=== PATIENT | female | born 1960 | race Caucasian/White ===

== ENCOUNTER → 2020-07-30 09:45 | Outpatient (CLI) | payer BC, SELFPAY ==
--- NOTE | ~2020-07-30 | US_ITS ---
EXAMINATION: US right upper quadrant DATE: 07/30/2020 10:26 INDICATION: Right upper quadrant abdominal pain. TECHNIQUE: Multiple grayscale and Doppler ultrasound images of the abdomen were obtained. COMPARISON: None FINDINGS: The visualized portions of the head and body of the pancreas are normal. The liver is alfreda l without focal lesion. No liver surface nodularity. There is normal flow in main portal vein. The ga llbladder is normal in size. There is a 4 mm polyp in the gallbladder, likely a benign cholesterol po lyp needing no follow-up. No gallstones or gallbladder wall thickening. There was no sonographic Murp hy sign. The common duct is normal and measures 3 mm. IMPRESSION: 1. No etiology for the patient's symptoms. Reviewed, dictated and finalized at location B. 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
== END ==
PROVIDERS: PCP Internal Medicine; Visit Provider Physician Assistant Medical
DX: R10.11 Right upper quadrant pain (principal)
CPT/HCPCS: 76705

== ENCOUNTER → 2021-08-19 09:31 | Outpatient (CLI) | payer BC, SELFPAY ==
--- NOTE | ~2021-08-19 | MR_ITS ---
EXAMINATION: MR brain/brain stem wo/w con DATE: 08/19/2021 10:59 INDICATION: Headache. TECHNIQUE: Magnetic resonance imaging (MRI) of the brain and brainstem was performed without and with 20 mL MultiHance intravenous contrast. Sequences included sagittal and axial T1-weighted FSE, axial diffusion-weighted FS EPI, axial T2*-weighted GRE, axial T2-weighted FLAIR Propeller, and axial T2-we ighted Propeller. Postcontrast sequences included axial and coronal T1-weighted FSE. Apparent diffusi on coefficient (ADC) maps were created. COMPARISON: None. FINDINGS: There are scattered areas of nonspecific increased T2-weighted signal intensity in the cere bral white matter, which is within normal limits for the patient's age. There is no intracranial hemo rrhage, acute infarction, or abnormal intracranial mass lesion. The ventricles are normal in size. Th e orbits are normal. The paranasal sinuses are clear. The mastoid air cells are normal. IMPRESSION: 1. Normal aging brain. Reviewed, dictated and finalized at location A. 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 Normal aging brain.
[2021-08-19 10:35] LABS: Estimated Glomerular Filt Rate 51
== END ==
PROVIDERS: PCP Internal Medicine; Visit Provider Physician Assistant Medical
DX: R51.9 Headache, unspecified (principal); R41.82 Altered mental status, unspecified
CPT/HCPCS: 70553; A9577

== ENCOUNTER → 2021-12-30 10:43 | Outpatient (CLI) | payer BC, SELFPAY ==
--- NOTE | ~2021-12-30 | XR_ITS ---
XR foot RT min 3V DATE: 12/30/2021 11:08 INDICATION: Stress fracture second metatarsal bone TECHNIQUE: 4 views COMPARISON: None FINDINGS: Prominent plantar calcaneal enthesopathy without associated erosive change or periostitis. There is mild osteoarthritis at first metatarsophalangeal joint. No fracture or dislocation, periosteal reaction or bone destruction is detected. IMPRESSION: Plantar calcaneal enthesopathy Mild osteoarthritis at first metatarsophalangeal joint No fracture is detected Reviewed, dictated and finalized at location B.
== END ==
PROVIDERS: PCP Internal Medicine; Visit Provider Podiatrist Foot & Ankle Surgery
DX: M77.31 Calcaneal spur, right foot (principal); M19.071 Primary osteoarthritis, right ankle and foot
CPT/HCPCS: 73630

== ENCOUNTER 2022-12-23 15:50 | Emergency (ER) | payer BC, SELFPAY ==
--- NOTE | ~2022-12-23 | CT_ITS ---
EXAMINATION: CT lumbar spine wo con DATE: 12/23/2022 17:24 INDICATION: Left-sided low back pain. Sciatica. TECHNIQUE: Computed tomography (CT) of the lumbar spine was performed without intravenous contrast. A utomated exposure control and iterative reconstruction technique were employed. The dose-length produ ct was 1372.09 mGy-cm. COMPARISON: None FINDINGS: Bone alignment is normal. There is mild chronic anterior wedging of T11 and T12 vertebral b odies. Intervertebral disc heights are normal. The following disc levels are specifically discussed: L1-L2: The disc does not extend beyond the endplate margin. There is moderate bilateral facet joint o steoarthritis. There is no neural foraminal stenosis. There is no central canal stenosis. L2-L3: There is a left foraminal protrusion. There is moderate bilateral facet joint osteoarthritis. There is mild left neural foraminal stenosis. There is no central canal stenosis. L3-L4: The disc is mildly bulging. There is moderate bilateral facet joint osteoarthritis. There is m ild bilateral neural foraminal stenosis. There is no central canal stenosis. L4-L5: The disc is bulging. There is severe bilateral facet joint osteoarthritis. There is mild bilat eral neural foraminal stenosis. There is mild central canal stenosis. There is moderate stenosis of r ight lateral recess. L5-S1: The disc is bulging. There is severe right and moderate left facet joint osteoarthritis. There is no neural foraminal stenosis. There is no central canal stenosis. IMPRESSION: 1. Mild lumbar spondylosis. Reviewed, dictated and finalized at location E. IMPRESSION: 1. Mild lumbar spondylosis.
[2022-12-23 16:05] VITALS: BP 108/79; PULSE 84; RESP 20; TEMP 36.3; O2SAT 98
--- NOTE | 2022-12-23 16:58 | ED.BACK ---
HPI - Back Pain/Injury General Chief Complaint: Back Pain/Injury Stated Complaint: sciatic pain Time Seen by Provider: 12/23/22 16:56 Source: patient Mode of arrival: ambulatory Limitations: no limitations History of Present Illness HPI Narrative: This is a 62-year-old female who presents to the ED with chief complaint of acute on chronic low back pain. Reports radiating pain into the left buttocks and left posterior lower extremity. States she has had low back pain for several months, however now it is starting to radiate into the lower extremity. Denies injuries. Describes a burning pain down the back of the leg. Denies numbness, weakness, urinary retention, bowel incontinence, fevers, chills. Related Data Allergies Allergy/AdvReac Type Severity Reaction Status Date / Time codeine Allergy Severe ANAPHYLACTI Verified 07/25/22 10:51 C Penicillins Allergy Intermediate HIVES Verified 07/25/22 10:51 Sulfa (Sulfonamide Allergy Intermediate HIVES Verified 07/25/22 10:51 Antibiotics) Review of Systems Review of Systems: CONSTITUTIONAL: Denies fever, chills, or sweats. SKIN: Denies rash or itching. MUSCULOSKELETAL: See HPI NEUROLOGIC: Denies headache, numbness, dizziness, or weakness. PSYCHIATRIC: Denies anxiety or depression. PMFSH Past Medical History Medical History Anxiety Arthritis Obesity Surgical History Surgical History H/O: hysterectomy Family History Family History Father Bone cancer Lung cancer Skin cancer Mother Heart disease CKD (chronic kidney disease) Diabetes mellitus Sibling No problems noted. Grandparent Heart disease Social History Social History (Updated 12/10/22 @ 14:45 by Tootie Montaño MA) Smoking packs per day: 0.5 Smoking cigarettes per day: 10.0 Smoking status: Unknown if ever smoked Tobacco type: cigarettes Alcohol intake: current Alcohol use details: socially Substance use: never Substance use type: does not use Lack of Transportation: No Lack of Food: Never True Current Housing: I Have Housing Concerned About Future Housing: No Difficulty Paying Gas/Electric Bills: No Difficulty Paying for Meds: No Currently Unemployed: No Education: High School Diploma/GED Difficulty w/ Childcare or Family Care: No Living arrangements: with family Occupation/Education: occupation Gender identity (if verbalized by the patient): Female Exam Narrative: GENERAL: Well-appearing, well-nourished, and in no acute distress. EXTREMITIES/SPINE: No midline tenderness throughout the CT LS spine. No bony deformities or step-offs. Lumbar left-sided paraspinal tenderness. Left SI tenderness. No right-sided tenderness. MSK exam is otherwise benign. Ambulatory. Normal range of motion. No edema. SKIN: Warm, dry, no rash. No overlying skin changes. NEURO: Alert and oriented x3. No focal deficits. 5 out of 5 strength and sensation in the lower extremities. PSYCH: Normal mood and affect. Course Vital Signs Vital signs: Vital Signs Temperature 97.4 F L 12/23/22 16:05 Pulse Rate 84 12/23/22 16:05 Respiratory Rate 20 12/23/22 16:05 Blood Pressure 108/79 12/23/22 16:05 Pulse Oximetry 98 12/23/22 16:05 Oxygen Delivery Room Air 12/23/22 16:05 Temperature 97.4 F L 12/23/22 16:05 Pulse Rate 84 12/23/22 16:05 Respiratory Rate 20 12/23/22 16:05 Blood Pressure 108/79 12/23/22 16:05 Pulse Oximetry 98 12/23/22 16:05 Oxygen Delivery Room Air 12/23/22 16:05 MDM - Back Pain/Injury MDM Narrative Medical decision making narrative: This is a 62-year-old female the ED with chief complaint of sciatica-like pains for 1 week. Longstanding history of back pain. Vitals are stable. Afebrile. No red flag back signs other than age. Exa
[2022-12-23] MEDS: KETOROLAC 30 MG/ML VIAL (*BKC) IM (17:28)
== END 2022-12-23 18:50 | disposition home or self-care (01) ==
LOC: ANHED 18:11
PROVIDERS: Emergency Provider Physician Assistant; PCP Physician Assistant Medical
DX: M54.42 Lumbago with sciatica, left side (principal); M19.90 Unspecified osteoarthritis, unspecified site; F41.9 Anxiety disorder, unspecified; E66.9 Obesity, unspecified; Z68.38 Body mass index [BMI] 38.0-38.9, adult; F17.210 Nicotine dependence, cigarettes, uncomplicated; M47.816 Spondylosis without myelopathy or radiculopathy, lumbar region
CPT/HCPCS: 72131; 96372; 99284; J1885

== ENCOUNTER 2023-02-03 10:00 | Outpatient (RCR) | payer BC, SELFPAY ==
--- NOTE | 2023-01-07 11:42 | PTOPEVAL1 ---
Assessment and note entered by Yonis Davila, PT Evaluation Information Assessment Status Evaluation Diagnosis Left side sciatica, muscle spasms DIANNE calfs Subjective Information Patient reports having DIANNE calf spasms so bad they are causing bruising. She reports having muscle enzymes values of 37 thousand when it is supposed to be 36. Patient also reports problems with her back causing radiating pain down the L leg from back into hip and then down the calf to the toes. 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 Pain is worse first thing in the morning and after prolonged position. Assessment PT Clinical Summary Maty is a 62 year old female coming into the clinic with a diagnosis of DIANNE calf muscle spasms and Sciatica on the L side. Patient has weakness in her core and hips, slight tightness in DIANNE calfs. No cramping noted during session. Physical therapy will work on back and calf stretching along with core and hip strengthening. Modalities and manual therapy as needed for pain control. Plan of Care Interventions Electrical Stimulation,Gait Training,Hot Pack/Cold Pack,Manual Therapy,Neuro Re-education,Patient/ Caregiver Education,Therapeutic Activities, Therapeutic Exercise,Ultrasound Other Interventions taping, cupping, IASTM PT Services Indicated Yes Treatment Frequency and 1-2x/wk for 4 weeks Duration These treatments will address the objective and functional deficits as defined above. The patient will be advanced safely and appropriately in order for the patient to progress towards his/her prior level of function. Additional exercises will be introduced and as well as a comprehensive home exercise program upon discharge, if needed, ?to ensure carryover of functional gains achieved in the clinic. This treatment plan has been reviewed and agreement upon by the patient.
--- NOTE | 2023-01-20 09:57 | PCPTNOTE ---
Patient called & cancelled scheduled appointment this date due to grand daughter being sick and Pt has to stay with her.
--- NOTE | 2023-02-03 13:17 | PTOPDC ---
Assessment and note entered by Yonis Davila, PT Evaluation Information Assessment Status Discharge Diagnosis Muscle spasm, sciatica L side Subjective Information Patient reports centralization of her radiating symptoms, still having pain in her low back, and R calf feels like there is a little alien in it running around. Patient has a nerve conduction test scheduled for March for the calf. Patient is also hoping to get an MRI of her low back, which she states the doctor said she could have after trying physical therapy. Pain is currently fluctuating being a 2/10 today, but was am 8/10 yesterday. Reported Pain Level Pain Score 2: Self Report Additional Pain Score Comments Patient reports she cannot find a rhyme or reason for the pain fluctuations. Assessment PT Clinical Summary Maty is a 62 year old female coming into the clinic with a diagnosis of spasms and L sides sciatica. Patient was evaluated on 01/05/23 and attended 5 visits. The patient has met her strength, flexibility, and centralization goals, but not pain. At this time patient feels comfortable with discharge from physical therapy with [facility] and will try to get an MRI of the back done along with the nerve conduction test on her R calf. Plan of Care PT Services Indicated No
== END 2023-02-03 14:32 | disposition home or self-care (01) ==
LOC: ANHPT 10:00
PROVIDERS: PCP Physician Assistant Medical; Visit Provider Student in an Organized Health Care Education/Training Program
DX: M62.838 Other muscle spasm (principal)
CPT/HCPCS: 97110; 97112; 97140; 97162; 97530

== ENCOUNTER → 2023-05-18 09:38 | Outpatient (CLI) | payer BC, SELFPAY ==
--- NOTE | ~2023-05-18 | MR_ITS ---
EXAMINATION: MR lower leg RT wo/w con DATE: 05/18/2023 10:33 INDICATION: Right lower extremity muscle spasms concerning for myopathic process TECHNIQUE: Magnetic resonance imaging (MRI) of the right lower leg was performed without and with 19 mL Multihance intravenous contrast. Sequences included axial, sagittal and coronal T1-weighted FSE an d fluid sensitive FSE STIR, axial T1-weighted FS FSE and post contrast axial, sagittal and coronal T1 -weighted FS FSE were also obtained. The contralateral left calf is included on the coronal images. COMPARISON: None. FINDINGS: There are regions of increased T2 signal involving portions of the musculature in the right calf most notable throughout the gastrocnemius muscle, both medial and lateral heads and in the muscles in the anterior compartment. Smaller regions of increased T2 signal in the muscles at the lateral compartme nt and in the posteromedial aspect of the soleus muscle. There appears to be corresponding minimal fa tty atrophy within the gastrocnemius muscle and muscles of the anterior compartment. Similar signal c hanges in distribution are seen in the contralateral left calf on the coronal images. Bone alignment is normal. Normal bone marrow signal throughout. There appears be at least mild osteoarthritis at the medial and lateral compartments of both knees. Small right knee joint effusion. No abnormally enhanc ing lesions identified. IMPRESSION: 1. Roughly symmetric pattern of geographic regions of increased fluid signal and minimal fatty atroph y of the musculature of both thighs most prominent at the gastrocnemius muscles and in the muscles in the anterior compartments consistent with nonspecific myopathy. The relatively symmetric bilateral d istribution would argue against trauma or infection and would favor other etiologies including denerv ation change, inherited myopathies and inflammatory myopathies which has a wide differential includin g multiple connective tissue diseases. Could consider muscle biopsy of the gastrocnemius muscle for p athologic correlation. Reviewed, dictated and finalized at location A. IMPRESSION: 1. Roughly symmetric pattern of geographic regions of increased fluid signal an d minimal fatty atrophy of the musculature of both thighs most prominent at the gastrocnemius muscles and in the muscles in the anterior compartments consiste nt with nonspecific myopathy. The relatively symmetric bilateral distribution w ould argue against trauma or infection and would favor other etiologies includi ng denervation change, inherited myopathies and inflammatory myopathies which h as a wide differential including multiple connective tissue diseases. Could con electrical assembler muscle biopsy of the gastrocnemius muscle for pathologic correlation.
== END ==
PROVIDERS: PCP Physician Assistant Medical; Visit Provider Student in an Organized Health Care Education/Training Program
DX: M62.831 Muscle spasm of calf (principal)
CPT/HCPCS: 73720; A9577

== ENCOUNTER 2023-05-20 09:19 | Outpatient (CLI) | payer BC, SELFPAY ==
--- NOTE | 2023-05-20 10:11 | ECHO_ITS ---
Patient Info Name: Maty Kim Age: 62 years : 1960 Gender: Female Ht: 63 in Wt: 210 lbs BSA: 2.10 m2 HR: 71 bpm BP: 120 / 81 mmHg Heart Rhythm: Sinus Rhythm Technical Quality: Fair Exam Date: 05/20/2023 10:20 AM Exam Location: [facility] Patient Status: Outpatient Admit Date: 05/20/2023 Staff Ordering Physician: Sherri Christian MD Washerette Machine Operator: Yesy Toth RDCS Attending Provider: Sherri Christian MD Exam Type: CA echo doppler w bubble study Study Info Indications - Concern for muscle dz, fam h/o cardio dz Complete two-dimensional, color flow and Doppler transthoracic echocardiogram is performed with agitated saline. Contrast/Agitated Saline Contrast/Ag. Saline: Agitated Saline Amount: 20.00 ml New IV Access: Left Site Condition: IV removed Summary 1. Left ventricular chamber dimension is normal. 2. Left ventricular systolic function is normal, estimated at 60-65%. 3. There is mild concentric increased left ventricular wall thickness. 4. The left ventricular diastolic function is grade II diastolic dysfunction. 5. E/e' 12 is mildly elevated. 6. No pulmonary hypertension, estimated pulmonary arterial systolic pressure is 22 mmHg. Left Ventricle E/e' 12 is mildly elevated. Left ventricular chamber dimension is normal. Left ventricular systolic function is normal, estimated at 60-65%. There is mild concentric increased left ventricular wall thickness. The left ventricular diastolic function is grade II diastolic dysfunction. Right Ventricle Right ventricular systolic function is normal and with normal TAPSE 2.2 cm. Right ventricular chamber dimension is normal. Left Atria Left atrial chamber dimension is normal. Right Atria Right atrial chamber dimension is normal. Atrial Septum Agitated saline injection with and without valsalva maneuver opacified right side cardiac chambers without shunt to left side cardiac chambers. Interatrial septum not well visualized by 2D and agitated saline imaging. Aortic Valve The aortic valve is trileaflet. There is no aortic valve stenosis. There is no aortic valve regurgitation. Pulmonic Valve There is no pulmonic regurgitation. Mitral Valve There is no mitral valve stenosis. There is no mitral valve regurgitation. Tricuspid Valve There is no tricuspid valve regurgitation. No pulmonary hypertension, estimated pulmonary arterial systolic pressure is 22 mmHg. Pericardium/Pleural There is no pericardial effusion. Inferior Vena Cava Normal inferior vena cava with >50% collapse upon inspiration consistent with normal right atrial pressure, 5 mmHg. Aorta The aortic root size at the sinus of Valsalva is normal. Left Ventricular Outflow Tract Name Value Normal LVOT 2D LVOT Diameter 2.0 cm LVOT Doppler LVOT Peak Gradient 6 mmHg LVOT Mean Gradient 3 mmHg LVOT VTI 25 cm LVOT VTI/AV VTI Ratio 0.7 LVOT Stroke Volume 75 ml LVOT CO 5.1 l/min LVOT CI 2.4 l/min/m2
--- NOTE | 2023-05-20 11:00 | NEURO_ITS ---
Impression: # Complains of muscle spasms in lower extremities. # Normal Nerve Conduction Study. # Normal needle/EMG exam without evidence of myotonia or denervation potentials. # Clinical correlation recommended. Nerve Conduction Studies Anti Sensory Summary Table Stim Site NR Peak (ms) P-T Amp (?V) Site1 Site2 Delta-P (ms) Dist (cm) Doroteo (m/s) Left Sup Fibular Anti Sensory (Ant Lat Mall) 14 cm 3.4 2.7 14 cm Ant Lat Mall 3.4 16.0 47 Right Sup Fibular Anti Sensory (Ant Lat Mall) NO RESPONSE 14 cm NR 14 cm Ant Lat Mall 16.0 Left Sural Anti Sensory (Lat Mall) Calf 3.8 27.6 Calf Lat Mall 3.8 16.0 42 Right Sural Anti Sensory (Lat Mall) Calf 3.8 22.1 Calf Lat Mall 3.8 16.0 42 Motor Summary Table Stim Site NR Onset (ms) O-P Amp (mV) Site1 Site2 Delta-0 (ms) Dist (cm) Doroteo (m/s) Left Peroneal Motor (Vastus Med) Ankle 3.8 3.3 Popit Ankle 8.2 42.0 51 Popit 12.0 1.6 Right Peroneal Motor (Vastus Med) Ankle 3.8 4.8 Popit Ankle 7.4 37.0 50 Popit 11.2 3.5 Left Tibial Motor (Abd Rubi Brev) Ankle 4.1 6.9 Knee Ankle 8.8 44.0 50 Knee 12.9 6.0 Right Tibial Motor (Abd Rubi Brev) Ankle 4.1 8.7 Knee Ankle 8.4 42.0 50 Knee 12.5 6.0 F Wave Studies NR F-Lat (ms) L-R F-Lat (ms) Left Peroneal (Mrkrs) (EDB) 47.97 0.16 Right Peroneal (Mrkrs) (EDB) 48.13 0.16 Left Tibial (Mrkrs) (Abd Hallucis) 48.89 0.18 Right Tibial (Mrkrs) (Abd Hallucis) 49.07 0.18 EMG Side Muscle Nerve Root Ins Act Fibs Amp Dur Recrt Comment Right AntTibialis Dp Br Fibular L4-5 Nml Nml Nml Nml Nml Right Gastroc Tibial S1-2 Nml Nml Nml Nml Nml Right Fibularis Long Sup Br Fibular L5-S1 Nml Nml Nml Nml Nml Right Flex Dig Long Tibial L5-S2 Nml Nml Nml Nml Nml Right Ext Dig Brev Dp Br Fibular L5, S1 Nml Nml Nml Nml Nml Left AntTibialis Dp Br Fibular L4-5 Nml Nml Nml Nml Nml Left Gastroc Tibial S1-2 Nml Nml Nml Nml Nml Left Fibularis Long Sup Br Fibular L5-S1 Nml Nml Nml Nml Nml Left Flex Dig Long Tibial L5-S2 Nml Nml Nml Nml Nml Left Ext Dig Brev Dp Br Fibular L5, S1 Nml Nml Nml Nml Nml Right QuadratusFem QuadFemoris L4-5, S1 Nml Nml Nml Nml Nml Left QuadratusFem QuadFemoris L4-5, S1 Nml Nml Nml Nml Nml MTDD
== END 2023-05-20 09:20 | disposition home or self-care (01) ==
PROVIDERS: PCP Physician Assistant Medical; Visit Provider Student in an Organized Health Care Education/Training Program
DX: M62.838 Other muscle spasm (principal); Z82.41 Family history of sudden cardiac death
CPT/HCPCS: 93306; 95886; 95910; 96375

== ENCOUNTER 2025-02-01 15:30 | Emergency (ER) | payer OTHER, SELFPAY ==
--- NOTE | 2025-02-01 15:31 | ED.URI ---
HPI - URI/Sore Throat General Chief Complaint: Upper Respiratory Infection Stated Complaint: sore throat / cough Time Seen by Provider: 02/01/25 15:31 Source: patient Mode of arrival: ambulatory Limitations: no limitations History of Present Illness HPI Narrative: Maty is a 64-year-old female patient presenting to the clinic today with complaints of sore throat and cough x1 day. She reports cough is productive. Has felt feverish. Took Tylenol and NyQuil last night for symptoms. Denies any chest pain or shortness of breath. States that her granddaughter stayed the night at her house and tested positive for strep. MD elicited complaint: sore throat and nasal congestion Related Data Home Medications ?Medication ?Instructions ?Recorded ?Confirmed ?Last Taken ?Type No Home Medications 02/01/25 02/01/25 Unknown History Allergies Allergy/AdvReac Type Severity Reaction Status Date / Time codeine Allergy Severe ANAPHYLACTI Verified 02/01/25 15:36 C Penicillins Allergy Intermediate HIVES as Verified 02/01/25 15:36 child, but has had Amoxil without rxn x 2 Sulfa (Sulfonamide Allergy Intermediate HIVES Verified 02/01/25 15:36 Antibiotics) Review of Systems Review of Systems: Pertinent positives per HPI. Patient denies any fever, chills, rash, headache, visual changes, dizziness, shortness of breath, chest pain, palpitations, nausea, vomiting, diarrhea, constipation, abdominal pain, or any urinary issues. [facility] Past Medical History Medical History Undifferentiated connective tissue disease Myositis Obesity Arthritis Anxiety Surgical History Surgical History H/O: hysterectomy Family History Family History Father Bone cancer Lung cancer Skin cancer Mother Heart disease CKD (chronic kidney disease) Diabetes mellitus Sibling No problems noted. Grandparent Heart disease Social History Social History Smoking packs per day: 0.5 Smoking cigarettes per day: 10.0 Smoking status: Unknown if ever smoked Tobacco type: cigarettes Alcohol intake: current Alcohol use details: socially Substance use: never Substance use type: does not use Lack of Transportation: No Lack of Food: Never True Current Housing: I Have Housing Concerned About Future Housing: No Difficulty Paying Gas/Electric Bills: No Difficulty Paying for Meds: No Currently Unemployed: No Education: High School Diploma/GED Difficulty w/ Childcare or Family Care: No Living arrangements: with family Occupation/Education: occupation Gender identity (if verbalized by the patient): Female Comments At the time of my signature, I reviewed and agree with the nursing past medical, surgical, social, and family history. There is no relevant family history pertinent to the patient complaint. Exam Narrative: General: Well-developed, morbidly obese, in no apparent distress Head: Normocephalic, atraumatic Eyes: Pupils equally round and reactive to light bilaterally, EOM intact, sclera and conjunctive clear, no discharge, lids normal Ears: TMs intact and clear, ear canals clear, no drainage, grossly hearing normal. Nose: Nares patent, clear nasal discharge, no inflammation, no sinus tenderness. Mouth: Oral pharynx red without lesions or masses, good dentition, MMM. Neck: Supple, trachea midline, no enlargement of anterior or posterior cervical nodes, no thyroid masses or goiter palpable. Cardio: Regular rate and rhythm, s1 and s2 normal, no murmur appreciated. Resp: Clear to auscultation bilaterally, no rhonchi, rales, wheezing or rubs Course Course Emergency Course: Portions of this record may have been created with voice recognition software. Level of Care: Express Care Visit Vital Signs Vital signs: Vital Signs Temperature 36.1 C L 02/01/25 15:33 Pulse Rate 106 H 02/01/25 15:33 Respiratory Rate 16 02/01/25 15:33 Blood Pressure 127/69 02/01/25 15:33 Pulse Oximetry 98 02/01/25 15:33 Oxygen Delivery Room Air 02/01/25 15:33 Temperature 36.1 C L 02/01/25 15:33 Pulse Rate 106 H 02/01/25 15:33 Respiratory Rate 16 02/01/25 15:33 Blood Pressure 127/69 02/01/25 15:33 Pulse Oximetry 98 02/01/25 15:33 Oxygen Delivery Room Air 02/01/25 15:33 Vital signs reviewed MDM - URI/Sore Throat MDM Narrative Medical decision making narrative: At the time of visit patient is resting comfortably on the exam table. Patient appears to be nontoxic. Labs: Strep test was performed and negative in the clinic today. Plan: I suspect patient has viral pharyngitis. We will send strep for culture. Supportive measures were discussed with the patient and they voiced understanding discharge instructions and agrees to treatment plan. Return precautions reviewed Differential Diagnosis Differential diagnosis: Likely upper respiratory infection, otitis media, sinusitis, viral infection, bronchitis, influenza, pharyngitis and other (COVID) Lab Data Labs: Lab Results 02/01/25 Range/Units 15:33 POC Grp A Strep Screen Negative (Negative) Discharge Plan Discharge Clinical Impression: Pharyngitis Qualifiers: Pharyngitis/tonsillitis etiology: unspecified etiology Qualified Code(s): J02.9 - Acute pharyngitis, unspecified Patient Disposition: Home Condition: Stable Instructions: Antibiotic Form, Pharyngitis (ED) Additional Instructions: Strep test was negative in the clinic today. We will send strep for culture if this comes back positive we will contact you in place you on antibiotics at that time. May take DayQuil/NyQuil for cold/flu symptoms. Increase fluids and stay well hydrated Tylenol/motrin for pain/fever Flonase and OTC antihistamines as directed Vicks vapor rub to open sinuses Sinus rinses for congestion Cepacol spray, cough drops, throat lozenges, warm tea with honey/lemon, gargle salt water to soothe throat BRAT diet for diarrhea Clear liquids x 24 hours then advance as tolerated for nausea/vomiting Go to the ED if you develop a worsening in your condition- high fever not controlled by Tylenol or Motrin, dehydration, weakness, lethargy, shortness of breath, or chest pain. Follow up with your PCP in 3-5 days if symptoms persist. Patient Language: Faroese Prescriptions: No Action No Home Medications Follow-up/Referrals: Galina French PA-C [Primary Care Provider] - Time of Disposition: 15:48 Quality NIHSS Nursing Documentation ED NIHSS nursing documentation: reviewed/agree
[2025-02-01 15:33] VITALS: BP 127/69; PULSE 106; RESP 16; TEMP 36.1; O2SAT 98
[2025-02-01 15:49] LABS: EDSTREPNEGPOS1 Negative (Negative)
--- OUTSIDE RECORDS SUMMARY | 2025-02-01 17:46 | XMS_ITS | Referral Summary ---
Author Organization [facility] Address [address] [place] [address] Care Team Providers Care Funeral Assistant Name Role Phone Galina French Primary Care Provider [phone] Allergies Active Allergy Reactions Criticality Noted Date Comments Codeine Hives,Itching,Shortn ess of breath High 04/15/1979 Penicillins Hives Medium 02/18/2022 Sulfa (Sulfonamide Antibiotics) Anaphylaxis High 02/18/2022 Medications oxyCODONE (ROXICODONE) 5 mg immediate release tabletIndicatio ns:Pain Take 1 tablet (5 mg total) by mouth every 6 (six) hours as needed for pain 5 tablet 3 Active Additional Information Patient not taking.Reported on 10/22/2023 celecoxib (CeleBREX) 200 mg capsule Take 1 capsule (200 mg total) by mouth daily Active ALPRAZolam (XANAX) 0.25 mg tablet Take 1 tablet (0.25 mg total) by mouth 2 (two) times a day 4 Active Active Problems Problem Noted Date Diagnosed Date Myopathy 06/10/2023 Immunizations Immunization Administration Dates Next Due Influenza, Quadrivalent, Lacie l Culture-based MDCK, Preservative Free, Antibiotic Free, Intramuscular 06/27/2022,06/23/2021,05/07/2019 Influenza, Quadrivalent, Spl it, Preservative Free, Intramuscular 05/06/2020 Influenza, Trivalent, IM (MDV) 06/15/2014 Tdap 06/15/2014 Social History Tobacco Use Types Packs/Day Years Used Date Smoking Tobacco: Former Cigarettes AUDIT-C Answer Date Recorded Q1: How often do you have a drink containing alc ohol? Monthly or less 06/18/2023 Q2: How many drinks containi ng alcohol do you have on a typical day when you are drinking? 1 or 2 06/18/2023 Q3: How often do you have si x or more drinks on one occasion? Never 06/18/2023 Personal Safety Answer Date Recorded Have you ever been in or are you currently in a harmful physical or emotional relationship or is someone making you feel afraid or unsafe? Denies 06/18/2023 Comments No Sex and Gender Information Value Date Recorded Sex Assigned at Not on file Legal Sex Female 6:46 PM [employer] Gender Identity Not on file Sexual Orientation Not on file Last Filed Vital Signs Vital Sign Reading Time Taken Comments Blood Pressure 108/76 10/22/2023 12:53 PM [employer] Pulse 119 10/22/2023 12:53 PM [employer] Temperature 36.6 C (97.9 F) 06/18/2023 10:40 AM CDT Respiratory Rate 17 06/18/2023 10:50 AM CDT Oxygen Saturation 96% 06/18/2023 10:50 AM CDT Inhaled Oxygen Concentration - - Weight 99.6 kg (219 lb 9.6 oz) 10/22/2023 12:53 PM [employer] Height 160 cm (5' 3) 10/22/2023 12:53 PM [employer] Body Mass Index 38.9 10/22/2023 12:53 PM [employer] Plan of Treatment Not on file Insurance [facility] PLUS [facility] H[facility]PPO Address: [address] [address] [place] [address] Care Teams Funeral Assistant Relationship Specialty Start Date End Date Galina French PA [facility] [place], [place] [id number] PCP - General Family Practice 08/04/22
--- OUTSIDE RECORDS SUMMARY | 2025-02-01 17:46 | XMS_ITS | Clinical Summary ---
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[employer] Gender Identity Not on file Sexual Orientation Not on file Obstetrics History Last Filed Vital Signs Vital Sign Reading Time Taken Comments Blood Pressure 108/76 10/22/2023 12:53 PM LEATHER GRADER Pulse 119 10/22/2023 12:53 PM LEATHER GRADER Temperature 36.6 C (97.9 F) 06/18/2023 10:40 AM CDT Respiratory Rate 17 06/18/2023 10:50 AM CDT Oxygen Saturation 96% 06/18/2023 10:50 AM CDT Inhaled Oxygen Concentration - - Weight 99.6 kg (219 lb 9.6 oz) 10/22/2023 12:53 PM LEATHER GRADER Height 160 cm (5' 3) 10/22/2023 12:53 PM LEATHER GRADER Body Mass Index 38.9 10/22/2023 12:53 PM LEATHER GRADER Plan of Treatment Health Maintenance Due Date Last Done Comments Breast Cancer Screening-Mammogram 1962 Colon Cancer Screening-Colonoscopy 1962 Depression Screening 1962 Hepatitis C Screening 1962 Hepatitis B Screening 1980 Regular Well Visit/Exam 18-64 1980 Zoster Vaccine (1 of 2) 2012 Covid-19 Vaccine (3 - season) 2024 11/03/2020, 10/06/2020 DTaP/Tdap/Td Vaccine (2 - Td or Tdap) 06/15/2024 06/15/2014 Influenza Vaccine (Season Ended) 2025 06/27/2022, 06/23/2021, 05/06/2020, Additional history exists Pneumococcal vaccine <65 Aged Out No longer eligible based on patient's age to complete this topic Insurance [facility] CHOICE PLUS Care Teams District Director Relationship Specialty Start Date End Date Galina French PA [address] [place] [id number] PCP - General Family Practice 08/04/22
== END 2025-02-01 15:50 | disposition home or self-care (01) ==
PROVIDERS: Emergency Provider Nurse Practitioner Family; PCP Physician Assistant Medical
DX: J02.9 Acute pharyngitis, unspecified (principal); M19.90 Unspecified osteoarthritis, unspecified site; E66.9 Obesity, unspecified; Z68.39 Body mass index [BMI] 39.0-39.9, adult
CPT/HCPCS: 87081; 87880; 99213; G0463